=== PATIENT | female | born 1935 | race Caucasian/White ===

== ENCOUNTER 2018-05-13 13:53 | Observation (INO) | payer OTHER, MEDICARE ==
--- NOTE | 2018-05-13 14:29 | PDOC ---
Rapid Medical Evaluation Chief Complaint: Rectal Bleed Time Seen by Provider: 05/13/18 14:22 Medical Evaluation: Allergies Allergy/AdvReac Type Severity Reaction Status Date / Time fentanyl Allergy Verified 05/13/18 14:19 lidocaine Allergy Verified 05/13/18 14:19 tramadol Allergy Verified 05/13/18 14:19 Vital Signs Temp Pulse Resp BP Pulse Ox 98.4 F 83 16 179/85 H 95 05/13/18 14:16 05/13/18 14:16 05/13/18 14:16 05/13/18 14:16 05/13/18 14:16 05/13/18 14:27 I have performed a brief in-person evaluation of this patient. The patient presents with a chief complaint of: BRBPR x 1 week. Reports constipation recently s/p taking tylenol # 3 for a fx scapula. No abd pain, weakness or dizziness. No h/o prior GIB. No scopes in past. Not on blood thinners Pertinent physical exam findings:Unremarkable I have ordered the following:labs The patient will proceed to the ED for further evaluation Discharge Disposition - Diagnosis GIB (gastrointestinal bleeding) Qualifiers: GI bleed type/associated pathology: unspecified gastrointestinal hemorrhage type Qualified Code(s): K92.2 - Gastrointestinal hemorrhage, unspecified - Referrals - Patient Instructions - Post Discharge Activity
--- NOTE | 2018-05-13 14:33 | PDOC ---
History of Present Illness - General Chief Complaint: Rectal Bleed Stated Complaint: PCP SENT Time Seen by Provider: 05/13/18 14:22 - History of Present Illness Initial Comments: 05/13/18 14:55 Patient is an 83 year old female with past medical history of COPD and Hypothyroidism, presented with 10-day history of black tarry stools and bright red blood per rectum. Patient reported having been constipated for the past month for taking Tylenol #3 for her scapular fracture. Ten days ago, patient noted bright red blood on her underwear as well as black tarry stools, about 3 episodes per day. Initially attributing it to hemorrhoids because of constipation, patient took colace. Patient saw her PCP (Dr. Riddle) yesterday, where she was told to see Dr. Hansen, who then referred patient to go to the ED. Patient reported recently having fatigue, but denies headache, dizziness, fever, chills, chest pain, shortness of breath, palpitations, abdominal pain, diarrhea, urinary symptoms. Never had colonoscopy/EGD in the past. Past History - Past Medical History Allergies/Adverse Reactions: Allergies Allergy/AdvReac Type Severity Reaction Status Date / Time fentanyl Allergy Verified 05/13/18 14:19 lidocaine Allergy Verified 05/13/18 14:19 tramadol Allergy Verified 05/13/18 14:19 Home Medications: Ambulatory Orders Calcium Carbonate [Calcium] 500 mg PO DAILY 05/13/18 Cyanocobalamin (Vitamin B-12) [Vitamin B-12] 1,000 mcg PO DAILY 05/13/18 Fluticasone/Salmeterol [Advair 250-50 Diskus] 1 each IH BID 05/13/18 Levothyroxine [Synthroid -] 75 mcg PO DAILY 05/13/18 COPD: Yes Thyroid Disease: Yes (hypothyriod) - Suicide/Smoking/Psychosocial Hx Smoking History: Never smoked Have you smoked in the past 12 months: No Information on smoking cessation initiated: No Hx Alcohol Use: No Drug/Substance Use Hx: No Review of Systems - Review of Systems Constitutional: No: Chills, Fever, Loss of Appetite, Unintentional Wgt. Loss HEENTM: No: Recent change in vision, Ear Pain, Nose Congestion, Difficulty Swallowing Respiratory: No: Cough, Shortness of Breath Cardiac (ROS): No: Chest Pain, Lightheadedness, Palpitations ABD/GI: Yes: Constipated, Rectal Bleeding. No: Abdominal Distended, Diarrhea, Nausea, Vomiting, Abdominal cramping : No: Burning, Dysuria, Discharge Neurological: No: Headache, Numbness, Tingling, Weakness *Physical Exam - Vital Signs Last Vital Signs Temp Pulse Resp BP Pulse Ox 98.4 F 83 16 179/85 H 95 05/13/18 14:16 05/13/18 14:16 05/13/18 14:16 05/13/18 14:16 05/13/18 14:16 - Physical Exam Comments: 05/13/18 15:17 General: awake, alert, oriented, not in acute distress Head:no signs of head trauma HEENT:PERRLA, EOMI, sclerae anicteric, no nasal congestion, non-erythematous oropharynx, dry mucous membranes Neck:soft, supple, trachea midline without LAD Heart:regular rate and rhythm, normal S1/S2, no m,r,g Lungs:clear to auscultation bilaterally, good air entry Abdomen:soft, nontender, nondistended, NABS, no guarding ALEXIS: +bright red blood, +melena, +external hemorrhoids, sphincter intact, no fissures, no masses appreciated Ext: +2 pulses, no peripheral edema, no cyanosis or clubbing Moderate Sedation - Procedure Monitoring Vital Signs: Procedure Monitoring Vital Signs Temperature 98.4 F 05/13/18 14:16 Pulse Rate 83 05/13/18 14:16 Respiratory Rate 16 05/13/18 14:16 Blood Pressure 179/85 H 05/13/18 14:16 O2 Sat by Pulse Oximetry (%) 95 05/13/18 14:16 ED Treatment Course - LABORATORY CBC & Chemistry Diagram: 05/13/18 14:33 05/13/18 14:33 Medical Decision Making - Medical Decision Making 05/13/18 15:22 Patient is an 83 year old female with past medical history of COPD and Hypothyroidism, presented with 10-day history of black tarry stools and bright red blood per rectum. DDx include but not limited to UGIB vs LGIB CBC, CMP, Coags EKG Stool occult Will call Dr. Hansen once with results. 05/13/18 16:18 CBC 05/13/18 14:[address] Donovan (cold header operator) office for baseline CBC Hgb 13.7 (08/2017), 13.9 (03/2017) Will admit for obs under Dr. Sánhcez Repeat CBC in am *DC/Admit/Observation/Transfer Diagnosis at time of Disposition: GIB (gastrointestinal bleeding) Qualifiers: GI bleed type/associated pathology: unspecified gastrointestinal hemorrhage type Qualified Code(s): K92.2 - Gastrointestinal hemorrhage, unspecified - Discharge Dispostion Condition at time of disposition: Stable Decision to Admit order: Yes - Referrals Referrals: Amado Riddle [Primary Care Provider] - - Patient Instructions - Post Discharge Activity
[2018-05-13 14:53] LABS: BASO % 1.5 % (0-2.0); EOS % 1.5 % (0-4.5); HEMATOCRIT 35.7 % (32.4-45.2); HEMOGLOBIN 11.3 GM/dL (10.7-15.3); LYMPH % 25.8 % (8-40); MCH 29.1 pg (25.7-33.7); MCHC 31.7 g/dl (32.0-36.0); MEAN CELL VOLUME 91.8 fl (80-96); MONO % 7.2 % (3.8-10.2); PLATELET COUNT 289 K/MM3 (134-434); RBC 3.89 M/mm3 (3.60-5.2); WHITE BLOOD COUNT 5.5 K/mm3 (4.0-10.0)
--- NOTE | 2018-05-13 15:02 | PDOC ---
Attending Attestation - HPI HPI: The patient is an 83 year old female, with a significant past medical history of COPD and hypothyroidism, who presents to the emergency department today complaining of bright red rectal bleeding and black-tarry stool for 10 days. Patient notes seeing bright red blood on her underwear and that her stool was black and tarry in color. She reports that these irregular bowel movements occur 3 times a day. Patient notes that she has been constipated for the past month, and admits that she originally thought it was a result of a hemorrhoid in combination with being constipated, so she began taking colace. Patient visited her PCP yesterday, who referred her to Dr. Hansen, who advised she visit the ED for her symptoms. Patient denies having a colonoscopy in the past, but admits to having an endoscopy which showed she had kidney stones. Patient denies history of similar The patient denies chest pain, shortness of breath, headache and dizziness. Denies fever, chills, nausea, vomit, and diarrhea. Denies dysuria, frequency, urgency and hematuria. Allergies: NKA Past surgical history: THR Social history: None reported PCP: Dr. Riddle 05/13/18 16:27 - Physicial Exam PE: GENERAL: The patient is in no acute distress. HEAD: Normal with no signs of trauma. EYES: PERRLA, EOMI, sclera anicteric, conjunctiva clear. ENT: Ears normal, nares patent, oropharynx clear without exudates. Moist mucous membranes. NECK: Normal range of motion, supple without lymphadenopathy, JVD, or masses. LUNGS: +Appears dyspneic. Breath sounds equal, clear to auscultation bilaterally. No wheezes, and no crackles. HEART:Regular rate and rhythm, normal S1 and S2 without murmur, rub or gallop. ABDOMEN: +Protuberant abdomen. Soft, nontender, normoactive bowel sounds. No guarding, no rebound. No masses palpable. EXTREMITIES: Normal range of motion, no edema. No clubbing or cyanosis. No erythema, or tenderness. NEUROLOGICAL: Cranial nerves II through XII grossly intact. Normal speech. No focal neurological deficits. MUSCULOSKELETAL: Back non-tender to palpation, no CVA tenderness SKIN: Warm, Dry, normal turgor, no rashes or lesions noted. 05/13/18 16:27 <Annalisa Cates - Last Filed: 05/13/18 16:27> - Resident Resident Name: Rosamaria Palomares - ED Attending Attestation I have performed the following: I have examined & evaluated the patient, The case was reviewed & discussed with the resident, I agree w/resident's findings & plan, Exceptions are as noted - Medical Decision Making 05/13/18 15:03 EKG - NSR rate of 73 bpm, axis nml, no ST elevation or depression Laboratory Tests 05/13/18 05/13/18 05/13/18 14:33 14:33 14:33 WBC 5.5 Hgb 11.3 Hct 35.7 Plt Count 289 INR 0.98 BUN 17 Creatinine 0.7 Stool Occult Blood 05/13/18 14:50 WBC Hgb Hct Plt Count INR BUN Creatinine Stool Occult Blood Positive We have contacted this patient's pmd to review this patient's most recent labs Hgb a few months ago was [address] on observation to monitor blood loss Will place on observation clinical Impression: GI bleeding, initial presentation <Jackie Foreman - Last Filed: 05/15/18 18:43>
[2018-05-13 15:03] LABS: INR 0.98 (0.83-1.09); PROTHROMBIN TIME (PATIENT) 11.6 SEC (9.7-13.0)
[2018-05-13 15:41] LABS: ALBUMIN 3.7 g/dl (3.4-5.0); ALK PHOS 154 U/L (45-117); ANION GAP 7 MMOL/L (8-16); BILIRUBIN,TOTAL 0.3 mg/dL (0.2-1); BLOOD UREA NITROGEN 17 mg/dL (7-18); CALCIUM 9.6 mg/dL (8.5-10.1); CHLORIDE 103 mmol/L (98-107); CO2 30 mmol/L (21-32); CREATININE 0.7 mg/dL (0.55-1.3); GLUCOSE,RANDOM 98 mg/dL (74-106); POTASSIUM 4.2 mmol/L (3.5-5.1); SGOT/AST 18 U/L (15-37); SGPT/ALT 22 U/L (13-61); SODIUM 140 mmol/L (136-145); TOT PROT 7.3 g/dl (6.4-8.2)
[2018-05-13] MEDS ORDERED: ALBUTEROL SO4 2.5/IPRATROPIUM 0.5 INH SOL 3 ML VIAL.NEB. NEB ONE ×2 (15:50→16:29)
--- NOTE | 2018-05-13 18:55 | HP ---
Admitting History and Physical - Primary Care Physician PCP: Bienvenido Sánchez - Admission History of Present Illness: 83 year old female, with a significant past medical history of COPD and hypothyroidism, who presents to the emergency department today complaining of bright red rectal bleeding and black-tarry stool for 10 days. Patient notes seeing bright red blood on her underwear and that her stool was black and tarry in color. She reports that these irregular bowel movements occur 3 times a day. Patient notes that she has been constipated for the past month, and admits that she originally thought it was a result of a hemorrhoid in combination with being constipated, so she began taking colace. Patient visited her PCP yesterday , who referred her to Dr. Hansen, who advised she visit the ED for her symptoms. Patient denies having a colonoscopy in the past, but admits to having an endoscopy which showed she had kidney stones. - Past Medical History Pulmonary: Yes: COPD Endocrine: Yes: Hypothyroidism - Smoking History Smoking history: Never smoked Have you smoked in the past 12 months: No - Alcohol/Substance Use Hx Alcohol Use: No Home Medications - Allergies Allergies/Adverse Reactions: Allergies Allergy/AdvReac Type Severity Reaction Status Date / Time fentanyl Allergy Verified 05/13/18 14:19 lidocaine Allergy Verified 05/13/18 14:19 tramadol Allergy Verified 05/13/18 14:19 - Home Medications Home Medications: Ambulatory Orders Calcium Carbonate [Calcium] 500 mg PO DAILY 05/13/18 Cyanocobalamin (Vitamin B-12) [Vitamin B-12] 1,000 mcg PO DAILY 05/13/18 Fluticasone/Salmeterol [Advair 250-50 Diskus] 1 each IH BID 05/13/18 Levothyroxine [Synthroid -] 75 mcg PO DAILY 05/13/18 Physical Examination Vital Signs: Vital Signs Temperature 98.4 F 05/13/18 14:16 Pulse Rate 94 H 05/13/18 18:17 Respiratory Rate 18 05/13/18 18:17 Blood Pressure 160/94 05/13/18 18:17 O2 Sat by Pulse Oximetry (%) 98 05/13/18 18:17 Constitutional: Yes: No Distress HENT: Yes: Atraumatic Neck: Yes: Supple Cardiovascular: Yes: Regular Rate and Rhythm Respiratory: Yes: CTA Bilaterally Gastrointestinal: Yes: Normal Bowel Sounds Extremities: Yes: WNL Edema: No Peripheral Pulses WNL: Yes Neurological: Yes: Alert, Oriented Labs: CBC, BMP 05/13/18 14:33 05/13/18 14:33 Problem List - Problems (1) GIB (gastrointestinal bleeding) Assessment/Plan: stable now will get gi involve fu cbc Code(s): K92.2 - GASTROINTESTINAL HEMORRHAGE, UNSPECIFIED Qualifiers: GI bleed type/associated pathology: unspecified gastrointestinal hemorrhage type Qualified Code(s): K92.2 - Gastrointestinal hemorrhage, unspecified Assessment/Plan Laboratory Tests 05/13/18 05/13/18 05/13/18 14:33 14:33 14:33 WBC 5.5 RBC 3.89 Hgb 11.3 Hct 35.7 MCV 91.8 MCH 29.1 MCHC 31.7 L RDW 14.0 Plt Count 289 MPV 8.0 Absolute Neuts (auto) 3.5 Neutrophils % 64.0 Lymphocytes % 25.8 Monocytes % 7.2 Eosinophils % 1.5 Basophils % 1.5 Nucleated RBC % 0 PT with INR 11.60 INR 0.98 Sodium 140 Potassium 4.2 Chloride 103 Carbon Dioxide 30 Anion Gap 7 L BUN 17 Creatinine 0.7 Creat Clearance w eGFR > 60 Random Glucose 98 Calcium 9.6 Total Bilirubin 0.3 AST 18 ALT 22 Alkaline Phosphatase 154 H Total Protein 7.3 Albumin 3.7 Stool Occult Blood Blood Type Antibody Screen 05/13/18 05/13/18 14:33 14:50 WBC RBC Hgb Hct MCV MCH MCHC RDW Plt Count MPV Absolute Neuts (auto) Neutrophils % Lymphocytes % Monocytes % Eosinophils % Basophils % Nucleated RBC % PT with INR INR Sodium Potassium Chloride Carbon Dioxide Anion Gap BUN Creatinine Creat Clearance w eGFR Random Glucose Calcium Total Bilirubin AST ALT Alkaline Phosphatase Total Protein Albumin Stool Occult Blood Positive Blood Type O POSITIVE Antibody Screen Negative Active Medications Generic Name Dose Route Start Last Admin Trade Name Freq PRN Reason Stop Dose Admin Levothyroxine Sodium 75 mcg 05/14/18 07:00 Synthroid - PO DAILY@0700 [facility]
[2018-05-13 20:40] VITALS: BMI 34.2
[2018-05-13] MEDS: PANTOPRAZOLE SODIUM 40 MG VIAL IVPUSH SCH (23:21)
[2018-05-14] MEDS ORDERED: LEVOTHYROXINE NA 75 MCG TABLET (FP) PO SCH (07:00)
[2018-05-14 07:20] LABS: BASO % 0.7 % (0-2.0); EOS % 1.1 % (0-4.5); HEMATOCRIT 32.4 % (32.4-45.2); HEMOGLOBIN 10.3 GM/dL (10.7-15.3); LYMPH % 17.1 % (8-40); MCH 29.1 pg (25.7-33.7); MCHC 31.8 g/dl (32.0-36.0); MEAN CELL VOLUME 91.6 fl (80-96); MEAN PLT VOLUME 8.1 fl (7.5-11.1); MONO % 10.3 % (3.8-10.2); NEUT % 70.8 % (42.8-82.8); PLATELET COUNT 240 K/MM3 (134-434); RBC 3.54 M/mm3 (3.60-5.2); RDW 13.6 % (11.6-15.6); WHITE BLOOD COUNT 7.7 K/mm3 (4.0-10.0)
[2018-05-14 08:14] LABS: ALBUMIN 3.1 g/dl (3.4-5.0); ALK PHOS 120 U/L (45-117); ANION GAP 9 MMOL/L (8-16); BILIRUBIN,TOTAL 0.6 mg/dL (0.2-1); BLOOD UREA NITROGEN 12 mg/dL (7-18); CALCIUM 8.1 mg/dL (8.5-10.1); CHLORIDE 104 mmol/L (98-107); CO2 27 mmol/L (21-32); CREATININE 0.7 mg/dL (0.55-1.3); GLUCOSE,RANDOM 98 mg/dL (74-106); SGOT/AST 17 U/L (15-37); SGPT/ALT 20 U/L (13-61); SODIUM 140 mmol/L (136-145); TOT PROT 6.1 g/dl (6.4-8.2)
[2018-05-14] MEDS: PANTOPRAZOLE SODIUM 40 MG VIAL IVPUSH SCH (11:09)
[2018-05-14 11:55] VITALS: BP 144/81; PULSE 73; TEMP 98.4
--- NOTE | 2018-05-14 12:51 | EKG ---
Test Reason : Blood Pressure : / mmHG Vent. Rate : 073 BPM Atrial Rate : 073 BPM P-R Int : 136 ms QRS Dur : 084 ms QT Int : 402 ms P-R-T Axes : 065 029 062 degrees QTc Int : 442 ms NORMAL SINUS RHYTHM NONSPECIFIC T WAVE ABNORMALITY ABNORMAL ECG NO PREVIOUS ECGS AVAILABLE Confirmed by DARNELL JACKSON, JASON ([id number]) on 05/14/2018 12:50:58 PM Referred By: Confirmed By:JASON PATRICK MD
--- NOTE | 2018-05-14 16:52 | DS ---
Physical Examination Vital Signs: Vital Signs Temperature 98.4 F 05/14/18 09:00 Pulse Rate 73 05/14/18 09:00 Respiratory Rate 20 05/14/18 10:57 Blood Pressure 144/81 05/14/18 09:00 O2 Sat by Pulse Oximetry (%) 97 05/14/18 10:57 Labs: CBC, BMP 05/14/18 06:30 05/14/18 06:30 Discharge Summary Reason For Visit: GASTROINTESTINAL HEMORRHAGE Condition: Stable - Instructions Referrals: Amado Riddle [Primary Care Provider] - Disposition: AGAINST MEDICAL ADVICE - Home Medications Comprehensive Discharge Medication List: Ambulatory Orders Calcium Carbonate [Calcium] 500 mg PO DAILY 05/13/18 Cyanocobalamin (Vitamin B-12) [Vitamin B-12] 1,000 mcg PO DAILY 05/13/18 Fluticasone/Salmeterol [Advair 250-50 Diskus] 1 each IH BID 05/13/18 Levothyroxine [Synthroid -] 75 mcg PO DAILY 05/13/18 ama
--- NOTE | 2018-05-14 17:17 | PN ---
Progress Note (short form) - Note Progress Note: came to see pt. She was discharged
== END 2018-05-14 13:59 | disposition left against medical advice (07) ==
LOC: JER 13:53 → JERBED 16:23 → J6S 18:30
PROVIDERS: ADMIT Internal Medicine; ATTEND Internal Medicine
PROC: 3E0F7GC Introduction of Other Therapeutic Substance into Respiratory Tract, Via Natural or Artificial Opening (ICD-10-PCS; principal; 2018-05-13)
PROC: 3E033GC Introduction of Other Therapeutic Substance into Peripheral Vein, Percutaneous Approach (ICD-10-PCS; 2018-05-13)
DX: K92.2 Gastrointestinal hemorrhage, unspecified (principal); J44.9 Chronic obstructive pulmonary disease, unspecified; E03.9 Hypothyroidism, unspecified; Z88.8 Allergy status to other drugs, medicaments and biological substances
CPT/HCPCS: 36415; 80053; 82272; 85025; 85610; 86850; 86900; 86901; 93005; 93010; 94640; 96374; 99283-25; G0378